=== PATIENT | female | born 1970 | race Caucasian/White ===

== ENCOUNTER → 2021-11-05 | Outpatient (CLI) | payer OTHER, SELFPAY ==
[2021-11-06 13:35] LABS: Cancer Antigen 125 12.9 U/mL (0.0-38.1)
== END | disposition home or self-care (01) ==
PROVIDERS: Visit Provider Obstetrics & Gynecology
DX: R19.09 Other intra-abdominal and pelvic swelling, mass and lump (principal)
CPT/HCPCS: 36415; 86304

== ENCOUNTER 2021-11-16 13:39 | Inpatient (IN) | payer SELFPAY, OTHER ==
--- NOTE | 2021-11-12 13:45 | EKG12_ITS ---
Test Reason : PREOP Blood Pressure : / mmHG Vent. Rate : 099 BPM Atrial Rate : 099 BPM P-R Int : 156 ms QRS Dur : 086 ms QT Int : 354 ms P-R-T Axes : 044 023 044 degrees QTc Int : 454 ms Normal sinus rhythm Normal ECG Confirmed by LOVE SMITH, CAIN ([id number]), legal editor MAXIMUS BAIN ([id number]) on 11/13/2021 10:36:21 A M Referred By: CHRISTINA Confirmed By:NUNO ALEMAN MD
--- NOTE | 2021-11-15 18:03 | HP.PCM_ITS ---
History and Physical Date of Admission: 11/16/21 Surgical History and Physical Dixie Hammer, a 50 year old female 0 0 0 0 0, presents for NUBIA/BSO on 11/16 at 9:30. -- Large Fibroids on CT Scan; Lower Abdominal Pain -- Dixie presents here today with her sister(Natacha) as referred by [facility] ED Physician for fibroid uterus. 50 y.o. G 0 P 0 sexually inactive post- menopausal non-smoker and reports she has been having low RLQ pains occasionally for the last year and had a CT Scan done at [facility](report attached) that showed fibroid uterus. Fibroid Uterus which began Found on CT Scan on . Dixie claims it started gradually and has been present 10/26/21 CT Scan. It occurs intermittantly. It is located in the RLQ of the abdomen. Dixie characterizes it to be non-radiating. Dixie characterizes the quality cramping.; Dixie characterizes the quality searing.; Dixie characterizes the quality aching. Severity is moderate and not improving; Associated signs and symptoms are pain is severe and wants something done as cannot toleratre much longer. Additional comments are: Referred by [facility] ED at [facility].; Additional comments are: CT scan with multiple fibroids: one 9-10 cm and another 5-6 cm. MEDICATIONS HISTORY: Patient is also takin. furosemide 20 mg tablet, One pill by mouth once a day 2. sertraline 25 mg tablet, One pill by mouth once a day ALLERGIES: No Known Allergies Infections - Chicken pox and Mumps Illnesses - Derpression/Anxiety, Edema in legs Accidents - None Hospitalizations - see surgery Review of Systems: GENERAL - Denies fever, or chills SKIN - Denies skin changes EYES - Denies visual changes EARS - Denies difficulty hearing NOSE - Denies nasal congestion or bleeding MOUTH - Denies sore throat or difficulty swallowing NECK - Denies pain or swelling RESPIRATORY - Denies shortness of breath or wheezin CARDIOVASCULAR - Denies palpitations or chest pain GASTROINTESTINAL - Denies nausea, vomiting, diarrhea, constipation GENITOURINARY - Denies dysuria, frequency of urination, incontinence of urine MUSCULOSKELETAL - Denies joint or muscle pain NEUROLOGICAL - Denies localized numbness or weakness PSYCHIATRIC - Denies depression or anxiety ENDOCRINE - Denies heat or cold intolerance, weight loss or gain HEMATO-IMMUNOLOGIC - Denies excesive bleeding with cuts SOCIAL HISTORY: Alcohol Use - None Smoking - Never Diet - no special diet Lifestyle - moderate stress lifestyle and single Exercise - active work Seat Belt Use - most of the time Employer - [employer] Illicit Drug Use - None Sexual Activity - sexually inactive Control - postmenopausal FAMILY HISTORY: nc MENSTRUAL HISTORY: LMP Known?- Postmenopausal PAST PREGNANCIES: Total Pregnancies - 0; Full Term Pregnancies - 0; Premature - 0; Abortions, Induced - 0; Abortions, Spontaneous - 0; Ectopics - 0; Multiple Births - 0; Living Children - 0 SURGICAL HISTORY: 1. 2000 (R) Hand Carpel Tunnel Repair ; Jony Smith MD 2. 2014 Hernia Repair, with mesh ; Bib Smith PHYSICAL EXAM BP- 124/84 Sitting, Right arm, large cuff Temp- 98.0 Taken Orally Weight- 284.0 lbs Height- 62 inch BMI:52.05 CONSTITUTIONAL - NAD, well nourished, and well developed and obese SKIN - No rash, lesions, or ulcers HEENT - Normocephalic, PERRLA, EOMI NECK - No nodes, no nuchal rigidity and thyroid normal size and texture LYMPH NODES - Palpation of lymph nodes in neck and groins within normal limits LUNGS - CTA x2 without wheezes, crackles or rales CARDIAC - Regular rate and rhythm without rubs, murmurs, or gallops ABDOMEN - Without hepatosplenomegaly, distention, masses, rebound, or guarding; normal bowel sounds; no hernias EXTREMITIES - No edema or calf tenderness NEUROLOGICAL - Cranial nerves II-XII grossly intact PSYCHIATRIC - A and O to time, place, person, mood and affect External Genitial Vagina - non-tender without lesions Urethra/Urethral Meatus - non-tender Bladder - non-tender Uterus - exam compromised by habitus Adnexa - exam limited by habitus Rectal - limited by habitus ASSESSMENT/PLAN: 1. Abdominal Pain Generalized, Leiomyoma Of Uterus and Unspecified Reviewed u/s showing likely large possibly degenerating fibroids causing her abdominal pain. CA-125 OK. Discussed options for treatment and she desires proceeding with NUBIA/BSO. Has hernia mesh and understands we may need to go thru this to remove uterus.
[2021-11-16] VITALS (15 sets, daily range): BP systolic 110–147; BP diastolic 66–90; PULSE 69–89; RESP 16–27; TEMP 35.9–36.7; O2SAT 84–98; BMI 51.6
--- NOTE | 2021-11-16 | HYST_PTH ---
PATIENT: CARLY MAXWELL LOC: MS3 U#:[id number] AGE/SX: 50/F ROOM: NE314 RE11/16/[address]: Dr. Nic Dodd MD : 1970 BED: 1 DIS: 11/17/2021 SPEC #: [id number] RECD: 11/17/21 10:27 STATUS: KRYS DANIELS #: [id number] TOMEKA: 11/16/21 00:[address]: Nic Dodd DEPT: SURGICAL PATHOLOGY RECD BY: Jonathan Encinas ENTERED: 11/17/21 10:27 SP TYPE: HYSTERECT OTHR DR: Staci Harp, SKY CAP-C Tissues: Uterus, NOS Procedures: Surgery Specimen Level V HEADER OPERATION: ERAS, hysterectomy, NUBIA, BSO PRE-OP DIAGNOSIS: Abdominal pain, leiomyoma TISSUE SUBMITTED: Cervix, Uterus, bilateral fallopian tubes, ovaries and fibroids MICROSCOPIC DIAGNOSIS Uterus, hysterectomy: Endometrium ? proliferative endometrium with focal cystic change. Myometrium ? leiomyomas with hyalinization and calcific change. Right and left ovaries ? corpora albicantia. Right and left fallopian tubes - No pathologic change. AM:kia 11/18/2021 COMMENT No cervix or endocervix is present in the specimen container. The contents of specimen container are examined again by Dr. Steve. Clinical correlation is suggested. Case has been reviewed in consultation with Dr. Sandoval who concurs with the above diagnosis. IDC:[id number] MICROSCOPIC DESCRIPTION Slides are reviewed. GROSS DESCRIPTION Received in fixative is one container labeled with the patient's name and designated cervix, uterus, bilateral fallopian tubes, bilateral ovaries, fibroids. The specimen consists of a hysterectomy specimen consisting of uterus in multiple pieces, detached nodular pieces and detached bilateral fallopian tubes and ovaries. Obvious cervix is not identified. The uterus in multiple pieces including nodular pieces weigh in aggregate 579 gm. One of the pieces consistent with uterus with endometrial cavity measures 9?x 7 x 6 cm. Detached nodular pieces measure 3 to 10.5 cm in greatest dimension and in aggregate 15?x 15 x 8 cm and the largest piece measures 9 x 9 x 7 cm. The endometrial cavity is compressed to one side and measures 3 cm in length and up to 1 cm in width. The endometrium is de la torre, glistening and measures 0.1 cm in thickness. The uterus is distorted and anterior and posterior surface cannot be identified. Sections of these masses reveal de la torre whorled cut surfaces without areas of hemorrhage, necrosis or cystic degeneration. The uninvolved uterine wall measures up to 2.5 cm in thickness. The ovaries and fallopian tubes are not identified as right or left. One of the fallopian tubes measure 3 cm in length and 0.5 cm in diameter. The fimbrial end is identified. Sections reveal unremarkable cut surfaces. Adjacent ovary measures 3 x 1.5 x 1 cm. Sections reveal unremarkable cut surfaces. Also present in the container are two detached pieces of fallopian tube. One of the pieces show fimbrial end and measures 2.5 cm in length and 0.5 cm in diameter and 2.5 cm in length and 0.5 cm in diameter. Sections reveal unremarkable cut surfaces. The second detached ovary measures 2 x 2 x 1.2 cm. Sections reveal unremarkable cut surfaces. History Instructor sections are submitted in 12 cassettes as follows: 14??uterine wall including endometrium (cassette 2 also contains the submucosal nodular mass), 5??largest intramural mass, 6 - second largest intramural mass in the body of the uterus, 7-9 - detached nodular masses (7 - largest detached nodular mass, 8 - second largest detached nodular mass, 9 - third largest detached nodular mass), 10 - one fallopian tube and adjacent ovary, 11 - second fallopian tube received in two pieces, 12 - second ovary. / JANNIE:kia 11/17/2021 TC:1 CPT: 26361
[2021-11-16 07:16] LABS: Internal QC Validated? YES +Cl - CLEAR BKGD; Pregnancy, Urine Negative Negative
[2021-11-16] MEDS: Acetaminophen 500 MG Tablet 1000 MG PO ×2 (07:31→17:22)
[2021-11-16] MEDS: Gabapentin 600 MG Tablet PO (07:31)
[2021-11-16 07:35] LABS: Hematocrit 37.3 % (37-47); Hemoglobin 11.6 g/dL (12.0-15.0); Mean Corp Hgb Conc 31.1 g/dL (32-36); Mean Corpuscular Hgb 26.2 pg (27.0-32.0); Mean Corpuscular Volume 84.2 fL (81-99); Mean Platelet Vol. 8.9 fl (6.2-12.0); Platelet Count 278 K/mm3 (150-450); RBC Distribution Width CV 15.8 % (11.6-14.6); RBC Distribution Width SD 49.1 fl (35.1-43.9); Red Blood Count 4.43 M/mm3 (4.2-5.4); White Blood Count 7.3 K/mm3 (4.4-11.0)
[2021-11-16] MEDS: Lactated Ringers 1,000 ML 40 ML IV ×3 (07:39→12:31)
[2021-11-16 07:58] LABS: Internal QC Validated? YES +Cl - CLEAR BKGD; Pregnancy, Serum, hCG Quali. NEGATIVE Negative
[2021-11-16 08:07] LABS: ALB/GLOB Ratio 0.7 RATIO (0.9-2.4); AST(SGOT) 19 U/L (15-37); Alanine Aminotransfer ALT/SGPT 28 U/L (13-56); Albumin, Serum 3.1 g/dL (3.2-5.0); Alkaline Phosphatase 71 U/L (45-117); Anion Gap 3 (5-15); BUN 12 mg/dL (7-18); BUN/Creat Ratio 23.2 RATIO (10-20); Calcium,Total 8.9 mg/dL (8.5-10.1); Chloride 103 mmol/L (98-107); Creatinine, Serum 0.52 mg/dL (0.55-1.02); EST Glomerular Filtration Rate 133 mL/min (>60); Est Glom Filt Rate - Afr Amer 160 mL/min (>60); Estimated Creatinine Clearance 101.23 ml/min; Globulin 4.6 g/dL (2.2-4.2); Glucose 112 mg/dL (74-106); Potassium 3.6 mmol/L (3.5-5.1); Protein, Total 7.7 g/dL (6.4-8.2); Sodium Level 139 mmol/L (136-145)
[2021-11-16 08:21] LABS: Bedside Glucose 106 mg/dL (74-106)
[2021-11-16 08:26] LABS: International Normalized Ratio 1.1
[2021-11-16 08:27] LABS: Partial Thromboplast Time 30.4 Seconds (24.1-36.2)
[2021-11-16 12:32] LABS: Hematocrit 33.2 % (37-47); Hemoglobin 10.5 g/dL (12.0-15.0); Mean Corp Hgb Conc 31.6 g/dL (32-36); Mean Corpuscular Hgb 26.5 pg (27.0-32.0); Mean Corpuscular Volume 83.8 fL (81-99); Mean Platelet Vol. 9.1 fl (6.2-12.0); Platelet Count 258 K/mm3 (150-450); RBC Distribution Width CV 15.8 % (11.6-14.6); RBC Distribution Width SD 48.2 fl (35.1-43.9); Red Blood Count 3.96 M/mm3 (4.2-5.4); White Blood Count 10.4 K/mm3 (4.4-11.0)
--- NOTE | 2021-11-16 12:40 | PCM.OPRPT ---
Report of Operation Date of Procedure: 11/16/21 Pre-Operative Diagnosis: Large uterus with fibroids stuck to bladder Post-Operative Diagnosis: The same Surgery/Procedure Performed:: Removal large uterus from the bladder myomectomy. Description of Surgical Findings:: This is a 50-year-old female who is undergoing a hysterectomy by Dr. Dodd and Dr. Klaus Caldwell and they called me in the assist then with the procedure the had a very large uterine fibroid that was stuck to the bladder anterior and they were concerned about dissecting the uterine mass off the bladder. So when I arrived the distal operating room the patient had already had a midline incision exposure was already done most of the uterus have been removed on palpation he can feel a large fibrin mass that was right stuck to the anterior part of the bladder and also there was another large uterine mass off to the patient's right side the peritoneum was overlying the mass so I incised the peritoneum over the mass I was then able to get between the bladder and the uterine and then dissected the uterine mass off the bladder until we got down to the vaginal cuff and then also we identified another large fibroid in the right adnexa area and were able to deliver this out and remove it placing clamps and stitches to control bleeding. Then finally once we got the large bladder fibroid up then we put clamps below it and then Dr. Dodd complete pleated surgery and then we closed the vaginal cuff and then please see the rest of his dictation. So I assisted the patient and the surgeons and helping them dissect this large uterine fibroid that was stuck to the anterior bladder wall. Surgeon: aime Type of Anesthesia: General Admit VTE Documentation VTE Present on Admission: No VTE Mechan Device Prophylaxis: SCD's VTE Pharm Prophylaxis ordered?: No
--- NOTE | 2021-11-16 13:24 | OP.PCM_ITS ---
Report of Operation Date of Procedure: 11/16/21 Pre-Operative Diagnosis: Large Symptomatic Uterine Fibroids Post-Operative Diagnosis: Large Symptomatic Uterine Fibroids Surgery/Procedure Performed:: Total Abdominal Hysterectomy and Bilateral Salpingo-Oophorectomy Description of Surgical Findings:: Multiple large uterine fibroids approximately 10 cm each in size. Multiple adnexal fibroids approximately 2 to 3 cm each in size and a single 6 cm anterior cervical fibroid. Uterus approximately 8 to 9 cm in size. Normal-appearing fallopian tubes and ovaries. Surgeon: Nic Dodd maintenance service supervisor: Anamika Schmidt Type of Anesthesia: General (Endotracheal) Anesthesiologist: Morro Vanegas Specimen's removed: Uterus and bilateral fallopian tubes and ovaries Drains: Angulo to straight drain Estimated Blood Loss (mL): 1000 cc Fluids Replaced: Crystalloid Description of Procedure: Surgeon: Nic Dodd MD, FACOG Intraoperative Consultation: Kofi Hart MD Indications: This is a 50-year-old patient who his been having problems with severe abdominal pain. CT scan and ultrasound shows this to be likely due to uterine fibroids. Patient had prior mesh placed in the right lower quadrant. Given this the patient desires that we proceed with the above procedure. She has been counseled regarding the risk and indications of this procedure including the possibility of bleeding, infection, and injury to surrounding structures such as bowel bladder. All questions were answered. She understands that if both ovaries are removed that she may need to be on hormone replacement therapy for an indefinite period of time. Procedure: Patient was taken to the operating room where after induction of general anesthesia she was prepped and draped in the usual sterile fashion. A Angulo catheter was placed. The abdomen was entered through a midline incision and peritoneal cavity was entered bluntly. Dickson retractor and then an extra-large wound protector was placed. Round ligaments were identified and ligated with 0 Vicryl suture. Infundibulopelvic ligaments were ligated x2. Unsuccessful attempts (due to the large anterior cervical fibroid) were made to develop a bladder flap and progressive bites were slowly taken down on either side of the uterine fundus ligating each pedicle with 0 Vicryl suture. After removing the uterus suprapubically, we were still unable to remove the cervix, anterior cervical fibroid, and fibroids in the right adnexa. For this reason urology (Dr. Hart) was called to help with this portion of the procedure and is dictated separately. After removing the large cervical fibroid and smaller fibroids in the right adnexa, the vaginal cuff angles were closed in a Maximilian fashion with 0 Vicryl suture and a single [id number] 0 Vicryl suture closed the midportion of vaginal cuff. Vaginal cuff and pelvic sidewall pedicles were oversewn where necessary to achieve hemostasis. Pelvis was copiously irrigated removing all clot and Akosua was placed across the vaginal cuff to help with postoperative hemostasis. [place] retractor and wound protector were removed and fascia was closed with running #1 looped PDS. Subcutaneous tissue was copiously irrigated with saline solution before closing with 3-0 Vicryl suture in 2 layers. 4-0 Vicryl suture was used in interrupted fashion to reapproximate skin edges in a horizontal mattress fashion. 3-0 Monocryl suture was then used in running fashion to reapproximate skin edges area and Steri-Strips placed across the incision. Mepilex dressing was placed and patient was given an abdominal binder for postoperative comfort. Patient tolerated the procedure well was taken to recovery room in satisfactory condition; sponge instrument and needle counts were all reportedly correct. Estimated blood loss for the case was 1000 cc. Cefotan 3 g IV was given prior to beginning the operative procedure. There were no apparent complications of the surgery. Specimen to pathology was uterus and bilateral fallopian tubes and ovaries. Grafts/Implants Used: None Complications None Admit VTE Documentation VTE Present on Admission: Yes VTE Mechan Device Prophylaxis: [facility] VTE Pharm Prophylaxis ordered?: Yes
[2021-11-16] MEDS: Ondansetron 4 MG/2 ML Vial IV (13:25)
[2021-11-16] MEDS: Ketorolac 30 MG/ML Syringe IV (17:22)
[2021-11-16] MEDS: Docusate Sodium 100 MG Capsule PO (21:03)
[2021-11-17] MEDS: Acetaminophen 500 MG Tablet 1000 MG PO ×4 (00:25→17:21)
[2021-11-17] MEDS: Ketorolac 30 MG/ML Syringe IV ×3 (00:26→11:50)
[2021-11-17 00:40] VITALS: BP 122/68; PULSE 89; RESP 18; TEMP 36.5; O2SAT 94
[2021-11-17 04:40] VITALS: BP 126/79; PULSE 81; RESP 18; TEMP 36.7; O2SAT 95
[2021-11-17 05:04] LABS: Hematocrit 30.1 % (37-47); Hemoglobin 9.4 g/dL (12.0-15.0); Mean Corp Hgb Conc 31.2 g/dL (32-36); Mean Corpuscular Hgb 26.5 pg (27.0-32.0); Mean Corpuscular Volume 84.8 fL (81-99); Mean Platelet Vol. 9.5 fl (6.2-12.0); Platelet Count 291 K/mm3 (150-450); RBC Distribution Width SD 49.8 fl (35.1-43.9); Red Blood Count 3.55 M/mm3 (4.2-5.4); White Blood Count 10.6 K/mm3 (4.4-11.0)
[2021-11-17 05:36] LABS: Creatinine, Serum 0.82 mg/dL (0.55-1.02); EST Glomerular Filtration Rate 77 mL/min (>60); Est Glom Filt Rate - Afr Amer 94 mL/min (>60); Estimated Creatinine Clearance 64.19 ml/min
[2021-11-17] MEDS: Enoxaparin 40 MG/0.4 ML Syringe SC (05:43)
[2021-11-17 08:40] VITALS: BP 93/58; PULSE 98; RESP 18; TEMP 37.2; O2SAT 95
--- NOTE | 2021-11-17 08:47 | PCM.PN.OB ---
Subjective Subjective Patient without complaints. Tolerating liquids well. Minimal pain. Minimal vaginal bleeding. Would like to go home later today if she meets criteria. Objective Data Objective Data Vital Signs: Vital Signs Temp Pulse Resp BP Pulse Ox 98.1 F 81 18 126/79 H 95 11/17/21 04:40 11/17/21 04:40 11/17/21 04:40 11/17/21 04:40 11/17/21 04:40 Oxygen Flow Rate (L/min) 2 Oxygen Delivery Method Nasal Cannula Weight: 282 lb 3.067 oz Body Mass Index (BMI) 51.6 Intake & Output: Intake and Output for Last 24 Hours 11/15/21 11/16/21 11/17/21 23:59 23:59 23:59 Intake Total 2377.5 / 2377.5 Output Total 300 / 550 250 / 250 Balance 2077.5 / 1827.5 -250 / -250 Lab / Micro Data Lab results narrative: Wound is clean, dry, and intact covered with Mepilex dressing. Good urine output. Hemoglobin okay. Creatinine okay. Result Diagrams: 11/17/21 04:02 11/17/21 04:02 Labs: Laboratory Results - last 24 hr 11/16/21 07:20: Blood Type A NEGATIVE, Antibody Screen NEGATIVE 11/16/21 07:20: Blood Type Cancelled, A1 Antigen Typing Cancelled, Rho(D) Type Cancelled, Antibody Screen Cancelled, Crossmatch See Detail 11/16/21 11:57: WBC 10.4, RBC 3.96 L, Hgb 10.5 L, Hct 33.2 L, MCV 83.8, MCH 26.5 L, MCHC 31.6 L, RDW Std Deviation 48.2 H, RDW Coeff of Svetlana 15.8 H, Plt Count 258, MPV 9.1 11/17/21 04:02: WBC 10.6, RBC 3.55 L, Hgb 9.4 L, Hct 30.1 L, MCV 84.8, MCH 26.5 L, MCHC 31.2 L, RDW Std Deviation 49.8 H, RDW Coeff of Svetlana 16.0 H, Plt Count 291, MPV 9.5 11/17/21 04:02: Creatinine 0.82, Estim Creat Clear Calc 64.19, Est GFR (MDRD) Af Amer 94, Est GFR (MDRD) Non-Af 77 Assessment & Plan (1) Status post abdominal hysterectomy and salpingo-oophorectomy: PLAN: Doing well postoperative day #1 status post total abdominal hysterectomy and bilateral salpingo-oophorectomy for large and symptomatic uterine fibroids. Discussed need for voiding on own and evidence of bowel function before discharge. Home-going instructions given in case patient meets criteria for discharge later today. Continuing present care otherwise.
--- NOTE | 2021-11-17 08:51 | PCM.DC ---
Discharge Instructions Diet Discharge Diet: No restrictions (do what you feel comfortable, but do not over do it. You may climb stairs, just use caution and hold the railing.) Activity May resume sexual activity in: 6 weeks (nothing in the vagina.) Lifting Restrictions: 25 pounds for 6 weeks. Dressing / Incision Call your doctor if your incision/area has: Continuous Slow Oozing, Sudden Increased Bleeding, Increased Pain/ Swelling, Increased Redness and Foul Smelling Discharge Call your doctor if you observe: Fever of 101 or Higher, Inability to urinate, Inability to have a bowel movement, Using more than 1 pad per hour and - (Some vaginal bleeding may be noted for up to 4-8 weeks.) Cleanse incision/area with: - (Let the soapy water run over your incision, rinse and pat dry.) Additional Dressing/Incision Instructions:: Okay to remove outer dressing in 1 to 2 weeks. The white strips (Steri Strips) on your incision will fall off on their own. Follow Up Care Please Follow Up With: Nic Dodd MD When: Call [phone] for an appointment to be seen in 2 weeks. Test Results: Test results from this visit will be discussed in further detail at your follow-up appointment, if applicable. Discharge Plan Admission Admit Date/Time: 11/16/21 13:39 Primary Reason for Your Visit: Abdominal Hysterectomy and Bilateral Salpingo-Oophorectomy Attending Provider: Nic Dodd Primary Care Provider: Staci Harp NP Discharge Orders/Prescriptions Prescriptions: New oxycodone 5 mg capsule 5 mg PO Q6H PRN (Reason: pain (scale score 7-10)) 7 Days Qty: 10 RF: 0 docusate sodium 100 mg tablet 100 mg PO BID PRN (Reason: constipation) Qty: 60 RF: 1 Continued furosemide 20 mg Tablet 20 mg PO DAILY RF: 0 calcium 600 mg Capsule 600 mg PO DAILY RF: 0 magnesium 100 mg Tablet 100 mg PO DAILY RF: 0 sertraline 25 mg Tablet 25 mg PO DAILY RF: 0 Other Ambulatory Orders: Magnesium (Routine) Timeframe: [id number] Facility: [facility] - Location: Laboratory Ordered By: Dr. Esau Garza Referrals / Follow Up: Staci Harp NP, [facility] [Primary Care Provider] - Disposition Disposition (needs filled in before D/C Order can be placed): Home, Self Care
[2021-11-17] MEDS: Sertraline 50 MG Tablet 25 MG PO (09:03)
[2021-11-17] MEDS: Furosemide 20 MG Tablet PO (09:03)
[2021-11-17] MEDS: Docusate Sodium 100 MG Capsule PO (09:03)
[2021-11-17] MEDS: 0.9% Saline Lock 10 ML Syringe IV (11:50)
[2021-11-17 12:40] VITALS: BP 102/70; PULSE 90; RESP 18; TEMP 37.1; O2SAT 93
--- NOTE | 2021-11-17 13:16 | CASEMGMT ---
RACHEL COREY Assessment: Face to Face with pt for initial transition planning/care coordination assessment. RN LEORA introduced self and role at [facility], pt voices understanding and consents to assessment. Pt is A/O x4 and answers all questions appropriately at this time. Pt sitting up in bed in no distress with two sisters, Carlita and Natacha at bedside. Care providers, pharmacy, and demographics verified/updated. Admitting Dx: [facility] PCP: Staci Harp NP Specialists:Yousif, BASE PLY HAND Preferred Pharmacy: [facility] Retail Insurance: [employer], [facility] Package Plan Prescription Benefit: no LW/HPOA: Pt denies having a LW/DPOA and denies need for info regarding AD. LNOK: Rashi Hammer, brother; Mitchel Tiffanie, brother Living Arrangements: Pt lives with her sister Michael in a two story house with a ramp to enter. Pt reports she is I in ADL's and denies concerns at home. 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 DME/HHC/SNF: Pt denies having any DME, previous hx of HHC or SNF stays. Pt states no concerns with going home at time of dc. Pt states no further concerns/needs. CM to follow. Advised pt to ask CM if any further question/concerns/needs arise, voices understanding. Pt Goal: Home Plan: Home
== END 2021-11-17 18:28 | disposition home or self-care (01) | DRG 743 ==
LOC: MS3 18:12
PROVIDERS: Anesthesiology; Admitting Provider Obstetrics & Gynecology; PCP Nurse Practitioner Family; Referring Provider Obstetrics & Gynecology; Visit Provider Obstetrics & Gynecology
PROC: 0UT90ZZ Resection of Uterus, Open Approach (ICD-10-PCS; CPT 58150; principal; 2021-11-16 09:10)
DX: D25.9 Leiomyoma of uterus, unspecified (principal); F32.A Depression, unspecified; F41.9 Anxiety disorder, unspecified; G25.81 Restless legs syndrome; N83.291 Other ovarian cyst, right side; Z79.899 Other long term (current) drug therapy; Z86.718 Personal history of other venous thrombosis and embolism
CPT/HCPCS: 36415; 80053; 81025; 82565; 82962; 84703; 85027; 85610; 85730; 86850; 86900; 86901; 86920; 88307; 93005; 99251; J7120; A4216; G0463; J0330; J2405

== ENCOUNTER → 2023-01-21 | Outpatient (CLI) | payer OTHER, SELFPAY ==
[2023-01-26 09:09] LABS: HPV APTIMA, High Risk Negative (Negative)
== END | disposition home or self-care (01) ==
LOC: LABSPEC 11:58
PROVIDERS: PCP Nurse Practitioner Family; Visit Provider Student in an Organized Health Care Education/Training Program
DX: Z12.4 Encounter for screening for malignant neoplasm of cervix (principal)
CPT/HCPCS: 87624; 88175; G0145

== ENCOUNTER 2024-01-17 10:30 | Outpatient (RCR) | payer OTHER, SELFPAY | END 2024-01-25 23:59 | LOC: NS 10:30 | PROVIDERS: PCP Nurse Practitioner Family; Visit Provider Orthopaedic Surgery | DX: Z71.3 Dietary counseling and surveillance (principal); E66.9 Obesity, unspecified; Z68.43 Body mass index [BMI] 50.0-59.9, adult | CPT/HCPCS: 97802; 97803 ==